=== PATIENT | female | born 1995 | race Caucasian/White ===

== ENCOUNTER 2018-09-28 23:09 | Inpatient (IN) | payer BC ==
[~2018-09-28] VITALS: Ht 160 cm; Wt 89.5 kg
[2018-09-28] MEDS ORDERED: diphenhydrAMINE 25mg capsule PO ONE (23:45)
[2018-09-28 23:57] LABS: BASOPHILS % (AUTO) 0.2 % (0-1); EOSINOPHILS % (AUTO) 0.2 % (0-6); HEMOGLOBIN 12.6 g/dl (12.0-16.0); LYMPHOCYTES # (AUTO) 3.6 X10'3 (1.1-4.8); LYMPHOCYTES % (AUTO) 14.7 % (21-51); MEAN CORPUSCULAR HGB CONC 33.2 g/dL (33.0-36.5); MEAN CORPUSCULAR VOLUME 84.3 FL (78-98); MONOCYTES # (AUTO) 2.4 X10'3 (0-0.9); MONOCYTES % (AUTO) 9.6 % (2-12); NEUTROPHILS # (AUTO) 18.5 X10'3 (1.8-7.7); NEUTROPHILS % (AUTO) 75.3 % (42-75); PLATELET COUNT 277 X10'3 (140-440); RED BLOOD COUNT 4.51 X10'6 (4.20-5.60); RED CELL DISTRIBUTION WIDTH 13.2 % (11.5-14.5); WHITE BLOOD COUNT 24.5 X10'3 (4.5-11.0)
[2018-09-29 00:05] LABS: CLARITY,URINE CLEAR (Clear)
[2018-09-29] MEDS ORDERED: normal saline 1000ML IV soln IV ONE (00:05)
[2018-09-29 00:07] LABS: ALANINE AMINOTRANSFERASE 20 U/L (12-78); ALBUMIN/GLOBULIN RATIO 0.6 (1.1-1.5); ALKALINE PHOSPHATASE 128 IU/L (46-116); ANION GAP 16 (8-16); ASPARTATE AMINO TRANSFERASE 34 U/L (10-37); BILIRUBIN,TOTAL 0.5 MG/DL (0.1-1.0); BLOOD UREA NITROGEN 9 MG/DL (7-18); CALCIUM 9.4 MG/DL (8.5-10.1); CHLORIDE 99 MMOL/L (99-107); GLUCOSE 116 MG/DL (70-104); POTASSIUM 3.4 MMOL/L (3.5-5.1); SODIUM 137 MMOL/L (135-145); TOTAL CARBON DIOXIDE 22.1 MMOL/L (24-32); TOTAL PROTEIN 8.1 G/DL (6.4-8.2); eGFR 78 ML/MIN
[2018-09-29 00:08] LABS: COLOR,URINE ORANGE (Yellow); UA COLLECTION TYPE CLN CATCH MIDSTREAM
[2018-09-29 00:12] LABS: URINE HCG NEGATIVE (NEG)
[2018-09-29 00:14] LABS: PROTHROMBIN TIME 9.7 SECONDS (9.0-12.0); TROPONIN I 7.88 NG/ML (0.0-0.05)
[2018-09-29 00:15] LABS: D-DIMER 1.74 MG/L FEU (0-0.50)
[2018-09-29 00:18] LABS: BACTERIA,URINE FEW /HPF (Neg); RBC,URINE NONE SEEN /HPF (0-2); SQUAMOUS EPITHELIAL CELL,UR FEW /LPF (FEW); WBC,URINE NONE SEEN /HPF (0-4)
[2018-09-29 00:21] LABS: PARTIAL THROMBOPLASTIN TIME 36 SECONDS (22-32)
[2018-09-29] MEDS ORDERED: iohexol 350MG/ML 100ml bottle IV ONE (00:25)
[2018-09-29 00:27] LABS: PLATELET ESTIMATE NORMAL; TOTAL CELLS COUNTED 100
[2018-09-29] MEDS ORDERED: LORazepam 2 mg/ml vial IV ONE (01:55)
[2018-09-29] MEDS ORDERED: morphine 4 MG/ML inj SYRINge IV PRN (02:15)
[2018-09-29] MEDS ORDERED: mag hydrox/Alum hydrox/simeth 30ml oral suspension PO PRN (02:15)
[2018-09-29] MEDS ORDERED: magnesium hydroxide 30ml (MOM) UD suspension PO PRN (02:15)
[2018-09-29] MEDS ORDERED: LEVO88TA39 PO (02:15)
[2018-09-29] MEDS ORDERED: nitroGLYCERIN 0.4mg SUBLingual tab SL PRN (02:15)
[2018-09-29] MEDS ORDERED: ETHI1TAB PO (02:16)
[2018-09-29] MEDS ORDERED: METF500T PO (02:16)
[2018-09-29] MEDS ORDERED: fentaNYL/PF 50MCG/1 ML 2ML syringe IV ONE (02:45)
[2018-09-29 02:50] LABS: HEMOGLOBIN A1C 5.3 % (4.5-6.2)
[2018-09-29] MEDS ORDERED: ondansetron/PF 4mg/2ml inj IV ONE (04:05)
[2018-09-29] MEDS: [UNRECOGNIZED DRUG - OTHER] IV SCH ×2 (04:07→05:24)
[2018-09-29] MEDS: VANCOMYCIN IV SCH ×2 (04:07→05:24)
[2018-09-29] MEDS: SODIUM CHLORIDE IV SCH ×2 (04:07→05:24)
[2018-09-29] MEDS: dextrose 5%-1/2 normal saline 1,000 ML IV SCH ×3 (04:07→21:27)
[2018-09-29 04:15] LABS: URINE AMPHETAMINE SCREEN NEGATIVE (Neg); URINE BARBITUATE SCREEN NEGATIVE (Neg); URINE BENZODIAZEPINES SCREEN NEGATIVE (Neg); URINE CANNABINOID SCREEN NEGATIVE (Neg); URINE COCAINE SCREEN NEGATIVE (Neg); URINE METHADONE SCREEN NEGATIVE (Neg); URINE OPIATE SCREEN NEGATIVE (Neg); URINE PHENCYCLIDINE SCREEN NEGATIVE (Neg)
[2018-09-29] MEDS ORDERED: aspirin 325mg tablet PO ONE (04:55)
[2018-09-29] MEDS: morphine 4 MG/ML inj SYRINge IV PRN (05:23)
[2018-09-29] MEDS: furosemide 20 MG/2 ML vial IV SCH ×3 (05:50→20:39)
--- NOTE | 2018-09-29 06:30 | NUR ---
[facility] admitting hospitalist, Dr. Erazo, regarding lasix order and need for potassium replacement. Patients current blood pressure is 97/55 mmHg will hold lasix until having spoken with .
--- NOTE | 2018-09-29 06:35 | NUR ---
Lasix order not give due to b/p being low. Dr. Erazo paged to discuss the order and possibly placing patient on mag and potassium replacement protocol but no response back. This will be covered in report to PCU nurse.
[2018-09-29 07:18] VITALS: BP 99/47
[2018-09-29] MEDS: metoprolol tartrate 12.5mg (1/2 tablet) PO SCH ×2 (08:00→20:40)
[2018-09-29] MEDS: aspirin 81mg tablet.DR PO SCH (08:59)
[2018-09-29] MEDS: levoTHYROXINE 88mcg tablet PO SCH (09:00)
[2018-09-29] MEDS: enoxaparin 80mg/0.8ml syringe SUBCUT SCH ×2 (09:10→20:41)
[2018-09-29] MEDS: HYDROcodone/acetaminophen 5mg/325mg tablet PO PRN (10:34)
[2018-09-29 11:00] VITALS: BP 97/55
[2018-09-29 15:00] VITALS: BP 100/61
[2018-09-29] MEDS: CefTRIAXone 2gm/D5W 50ml 50 ML IV SCH (15:44)
--- NOTE | 2018-09-29 17:36 | NUR ---
[place] documentation: I have reviewed and agree with all interventions, assessments performed and documented by AMADOU Londono.
--- NOTE | 2018-09-29 17:37 | NUR ---
[place] Medication Administration: For this medication-pass time frame, all medication were reviewed, dispensed, administered and documented per hospital policy by AMADOU Londono.
--- NOTE | 2018-09-29 18:18 | NUR ---
Problems reprioritized. Patient report given, questions answered & plan of care reviewed with Mary TOBAR. Pt is eating dinner and in no acute distress.
[2018-09-29 19:00] VITALS: BP 106/56
[2018-09-29 21:20] LABS: CREATINE KINASE 128 U/L (26-192)
[2018-09-29 21:25] LABS: TROPONIN I 1.98 NG/ML (0.0-0.05)
[2018-09-29 23:00] VITALS: BP 108/60
[2018-09-30] MEDS: ondansetron/PF 4mg/2ml inj IV PRN ×2 (01:56→21:46)
[2018-09-30] MEDS: morphine 4 MG/ML inj SYRINge IV PRN (02:30)
[2018-09-30 03:00] VITALS: BP 105/64
[2018-09-30 06:00] VITALS: BP 101/59
--- NOTE | 2018-09-30 06:02 | NUR ---
Problems reprioritized. Patient report given, questions answered & plan of care reviewed with Rubin TOBAR.
--- NOTE | 2018-09-30 06:10 | NUR ---
Patient in room PCU 3026. I have received report from AMADOU Hernandez and had the opportunity to ask questions and assume patient care.
[2018-09-30] MEDS: levoTHYROXINE 88mcg tablet PO SCH (07:46)
[2018-09-30] MEDS: enoxaparin 80mg/0.8ml syringe SUBCUT SCH ×2 (07:47→20:37)
[2018-09-30] MEDS: aspirin 81mg tablet.DR PO SCH (07:47)
[2018-09-30] MEDS: CefTRIAXone 2gm/D5W 50ml 50 ML IV SCH (07:47)
[2018-09-30] MEDS: furosemide 20 MG/2 ML vial IV SCH ×2 (07:47→20:38)
[2018-09-30] MEDS: metoprolol tartrate 12.5mg (1/2 tablet) PO SCH ×2 (07:51→20:00)
[2018-09-30] MEDS: dextrose 5%-1/2 normal saline 1,000 ML IV SCH ×2 (08:14→14:53)
[2018-09-30 08:35] LABS: BASOPHILS % (AUTO) 0.2 % (0-1); EOSINOPHILS # (AUTO) 0.1 X10'3 (0-0.9); EOSINOPHILS % (AUTO) 0.5 % (0-6); HEMATOCRIT 29.2 % (35.0-45.0); HEMOGLOBIN 9.9 g/dl (12.0-16.0); LYMPHOCYTES # (AUTO) 2.8 X10'3 (1.1-4.8); LYMPHOCYTES % (AUTO) 19.8 % (21-51); MEAN CORPUSCULAR HEMOGLOBIN 28.7 PG (27.0-31.0); MEAN CORPUSCULAR VOLUME 84.3 FL (78-98); MEAN PLATELET VOLUME 7.2 FL (7.4-10.4); MONOCYTES # (AUTO) 1.3 X10'3 (0-0.9); MONOCYTES % (AUTO) 8.9 % (2-12); NEUTROPHILS # (AUTO) 10.1 X10'3 (1.8-7.7); NEUTROPHILS % (AUTO) 70.6 % (42-75); PLATELET COUNT 259 X10'3 (140-440); RED BLOOD COUNT 3.46 X10'6 (4.20-5.60); RED CELL DISTRIBUTION WIDTH 12.2 % (11.5-14.5); WHITE BLOOD COUNT 14.3 X10'3 (4.5-11.0)
[2018-09-30 09:01] LABS: ALBUMIN 2.1 G/DL (3.4-5.0); ANION GAP 10 (8-16); BLOOD UREA NITROGEN 6 MG/DL (7-18); BUN/CREATININE RATIO 11.3 (6.6-38.0); CALCIUM 8.2 MG/DL (8.5-10.1); CHLORIDE 104 MMOL/L (99-107); CHOL/HDL RATIO 6.1 (0.00-4.99); CHOLESTEROL 146 MG/DL (0-200); CREATINE KINASE 56 U/L (26-192); CREATININE 0.53 MG/DL (0.40-0.90); GLUCOSE 113 MG/DL (70-104); HDL CHOLESTEROL 24 MG/DL (35-60); LDL CHOLESTEROL 93 MG/DL (50-100); POTASSIUM 3.4 MMOL/L (3.5-5.1); SODIUM 137 MMOL/L (135-145); TOTAL CARBON DIOXIDE 23.4 MMOL/L (24-32); TRIGLYCERIDES 237 MG/DL (20-135); eGFR > 90 ML/MIN
[2018-09-30 09:03] LABS: TROPONIN I 1.62 NG/ML (0.0-0.05)
--- NOTE | 2018-09-30 09:47 | NUR ---
Student Medication Administration: For this medication-pass time frame, all medication were reviewed, dispensed, administered and documented per hospital policy by SN Lynette.
--- NOTE | 2018-09-30 09:49 | NUR ---
Student documentation: I have reviewed and agree with all interventions, assessments performed and documented by SN Lynette.
[2018-09-30] MEDS ORDERED: potassium Cl 40MEQ/NS 500ml 500 ML IV PRN ×2 (10:10)
[2018-09-30] MEDS ORDERED: potassium Cl 20 mEq SR tablet PO PRN (10:10)
[2018-09-30] MEDS ORDERED: magnesium Cl slow-release 64mg tablet PO PRN (10:10)
[2018-09-30] MEDS ORDERED: magnesium 4gm in 100ml NS 100 ML IV PRN (10:10)
[2018-09-30] MEDS: potassium Cl 20 mEq SR tablet PO PRN ×3 (10:23→20:38)
[2018-09-30 11:56] VITALS: BP 105/68
[2018-09-30] MEDS: HYDROcodone/acetaminophen 5mg/325mg tablet PO PRN ×2 (13:38→18:41)
[2018-09-30 15:00] VITALS: BP 90/64
--- NOTE | 2018-09-30 18:08 | NUR ---
Problems reprioritized. Patient report given, questions answered & plan of care reviewed with AMADOU Hernandez.
[2018-09-30 18:30] VITALS: BP 109/70
[2018-09-30 22:10] VITALS: BP 89/48
[2018-10-01 02:10] VITALS: BP 124/68
[2018-10-01] MEDS: dextrose 5%-1/2 normal saline 1,000 ML IV SCH ×2 (02:35→12:26)
[2018-10-01] MEDS: acetaminophen 325mg tablet PO PRN ×2 (02:45→12:25)
--- NOTE | 2018-10-01 05:16 | NUR ---
Student Medication Administration: For this medication-pass time frame, all medication were reviewed, dispensed, administered and documented per hospital policy by Jimena VASQUEZ. Student documentation: I have reviewed and agree with all interventions, assessments performed and documented by Jimena VASQUEZ.
[2018-10-01 06:00] VITALS: BP 100/60
--- NOTE | 2018-10-01 06:00 | NUR ---
Problems reprioritized. Patient report given, questions answered & plan of care reviewed with Rubin TOBAR.
--- NOTE | 2018-10-01 06:13 | NUR ---
Patient in room PCU 3022. I have received report from AMADOU Hernandez and had the opportunity to ask questions and assume patient care.
[2018-10-01 06:21] LABS: BASOPHILS % (AUTO) 0.3 % (0-1); EOSINOPHILS # (AUTO) 0.2 X10'3 (0-0.9); EOSINOPHILS % (AUTO) 1.2 % (0-6); HEMATOCRIT 28.5 % (35.0-45.0); HEMOGLOBIN 9.6 g/dl (12.0-16.0); LYMPHOCYTES # (AUTO) 3.7 X10'3 (1.1-4.8); LYMPHOCYTES % (AUTO) 29.3 % (21-51); MEAN CORPUSCULAR HEMOGLOBIN 28.5 PG (27.0-31.0); MEAN CORPUSCULAR HGB CONC 33.8 g/dL (33.0-36.5); MEAN CORPUSCULAR VOLUME 84.1 FL (78-98); MEAN PLATELET VOLUME 7.3 FL (7.4-10.4); MONOCYTES # (AUTO) 1.3 X10'3 (0-0.9); MONOCYTES % (AUTO) 9.9 % (2-12); NEUTROPHILS # (AUTO) 7.5 X10'3 (1.8-7.7); NEUTROPHILS % (AUTO) 59.3 % (42-75); PLATELET COUNT 238 X10'3 (140-440); RED BLOOD COUNT 3.39 X10'6 (4.20-5.60); WHITE BLOOD COUNT 12.7 X10'3 (4.5-11.0)
[2018-10-01 06:36] LABS: ANION GAP 11 (8-16); BLOOD UREA NITROGEN 7 MG/DL (7-18); BUN/CREATININE RATIO 11.5 (6.6-38.0); CALCIUM 8.3 MG/DL (8.5-10.1); CHLORIDE 104 MMOL/L (99-107); CREATININE 0.61 MG/DL (0.40-0.90); GLUCOSE 94 MG/DL (70-104); POTASSIUM 3.6 MMOL/L (3.5-5.1); SODIUM 139 MMOL/L (135-145); TOTAL CARBON DIOXIDE 24.4 MMOL/L (24-32); eGFR > 90 ML/MIN
[2018-10-01] MEDS: aspirin 81mg tablet.DR PO SCH (07:51)
[2018-10-01] MEDS: lactobacillus rhamnosus 10,000 MMU CELLS/CAPSULE PO SCH ×2 (07:51→19:42)
[2018-10-01] MEDS: metoprolol tartrate 12.5mg (1/2 tablet) PO SCH ×2 (07:51→19:56)
[2018-10-01] MEDS: furosemide 20 MG/2 ML vial IV SCH ×2 (07:52→19:42)
[2018-10-01] MEDS: levoTHYROXINE 88mcg tablet PO SCH (07:52)
[2018-10-01] MEDS: CefTRIAXone 2gm/D5W 50ml 50 ML IV SCH (07:52)
[2018-10-01] MEDS: enoxaparin 80mg/0.8ml syringe SUBCUT SCH ×2 (08:00→19:41)
[2018-10-01] MEDS: metFORMIN 500mg tablet PO SCH ×3 (08:05→20:00)
[2018-10-01 15:00] VITALS: BP 119/68
[2018-10-01] MEDS ORDERED: regadenoson 0.4mg/5ml syringe IV ONE (15:20)
[2018-10-01] MEDS ORDERED: metoprolol tartrate 1mg/ml inj IV PRN (15:20)
[2018-10-01] MEDS ORDERED: nitroGLYCERIN 0.4mg SUBLingual tab SL PRN (15:20)
[2018-10-01] MEDS ORDERED: aminophylline 250mg/10ml inj. IV PRN (15:20)
--- NOTE | 2018-10-01 18:09 | NUR ---
Problems reprioritized. Patient report given, questions answered & plan of care reviewed with AMADOU Hernandez.
[2018-10-01 18:30] VITALS: BP 126/63
[2018-10-01 22:46] VITALS: BP 94/49
[2018-10-02] VITALS (13 sets, daily range): BP systolic 90–130; BP diastolic 43–77
[2018-10-02] MEDS: dextrose 5%-1/2 normal saline 1,000 ML IV SCH (00:14)
--- NOTE | 2018-10-02 06:19 | NUR ---
Problems reprioritized. Patient report given, questions answered & plan of care reviewed with Violeta TOBAR & Isabella RN.
--- NOTE | 2018-10-02 06:51 | NUR ---
Patient in room PCU 3022. I have received report from Mary TOBAR and had the opportunity to ask questions and assume patient care. Pt is resting comfortably on room air in no apparent distress. Pt is alert and oriented X 4, will continue to monitor.
[2018-10-02 07:07] LABS: BASOPHILS % (AUTO) 0.3 % (0-1); EOSINOPHILS # (AUTO) 0.2 X10'3 (0-0.9); EOSINOPHILS % (AUTO) 1.5 % (0-6); HEMATOCRIT 30.4 % (35.0-45.0); HEMOGLOBIN 10.2 g/dl (12.0-16.0); LYMPHOCYTES # (AUTO) 3.8 X10'3 (1.1-4.8); MEAN CORPUSCULAR HEMOGLOBIN 28.2 PG (27.0-31.0); MEAN CORPUSCULAR HGB CONC 33.6 g/dL (33.0-36.5); MEAN CORPUSCULAR VOLUME 84.1 FL (78-98); MEAN PLATELET VOLUME 7.3 FL (7.4-10.4); MONOCYTES # (AUTO) 1.4 X10'3 (0-0.9); MONOCYTES % (AUTO) 11.1 % (2-12); NEUTROPHILS # (AUTO) 7.2 X10'3 (1.8-7.7); NEUTROPHILS % (AUTO) 57.1 % (42-75); PLATELET COUNT 260 X10'3 (140-440); RED BLOOD COUNT 3.61 X10'6 (4.20-5.60); RED CELL DISTRIBUTION WIDTH 12.9 % (11.5-14.5); WHITE BLOOD COUNT 12.6 X10'3 (4.5-11.0)
[2018-10-02 07:09] LABS: HIV ANTIBODY 1&2 RAPID NON-REACTIVE (Neg)
[2018-10-02 07:12] LABS: ALBUMIN 2.2 G/DL (3.4-5.0); ANION GAP 10 (8-16); BLOOD UREA NITROGEN 10 MG/DL (7-18); BUN/CREATININE RATIO 15.4 (6.6-38.0); CALCIUM 8.7 MG/DL (8.5-10.1); CHLORIDE 102 MMOL/L (99-107); CREATININE 0.65 MG/DL (0.40-0.90); GLUCOSE 87 MG/DL (70-104); POTASSIUM 3.7 MMOL/L (3.5-5.1); SODIUM 139 MMOL/L (135-145); TOTAL CARBON DIOXIDE 26.8 MMOL/L (24-32); eGFR > 90 ML/MIN
[2018-10-02] MEDS: enoxaparin 80mg/0.8ml syringe SUBCUT SCH ×2 (08:00→21:02)
[2018-10-02] MEDS: furosemide 20 MG/2 ML vial IV SCH ×2 (08:00→20:58)
[2018-10-02] MEDS: metFORMIN 500mg tablet PO SCH ×2 (08:00→08:46)
[2018-10-02] MEDS: metoprolol tartrate 12.5mg (1/2 tablet) PO SCH ×2 (08:00→20:57)
[2018-10-02] MEDS: aspirin 81mg tablet.DR PO SCH (08:46)
[2018-10-02] MEDS: levoTHYROXINE 88mcg tablet PO SCH (08:46)
[2018-10-02] MEDS: lactobacillus rhamnosus 10,000 MMU CELLS/CAPSULE PO SCH ×2 (08:55→20:57)
[2018-10-02] MEDS ORDERED: regadenoson 0.4mg/5ml syringe IV ONE (09:57)
[2018-10-02] MEDS ORDERED: aminophylline inj. 10 ML IV ONE (09:57)
--- NOTE | 2018-10-02 13:04 | NUR ---
PAGER ID: [phone] MESSAGE: [id number] Deysi Calderon Stress test resulted, pt is wanting to eat, but is still NPO. Please review and call me to let me know, thank you, Violeta#[phone]
--- NOTE | 2018-10-02 18:40 | NUR ---
Problems reprioritized. Patient report given, questions answered & plan of care reviewed with Mary TOBAR.
[2018-10-02] MEDS: HYDROcodone/acetaminophen 5mg/325mg tablet PO PRN (20:59)
[2018-10-02] MEDS: temazepam 15mg capsule PO PRN (20:59)
[2018-10-03] VITALS (11 sets, daily range): BP systolic 93–121; BP diastolic 54–70
--- NOTE | 2018-10-03 06:49 | NUR ---
Problems reprioritized. Patient report given, questions answered & plan of care reviewed with Nathan RN.
--- NOTE | 2018-10-03 07:08 | NUR ---
Patient in room PCU 3022. I have received report from AMADOU CATES and had the opportunity to ask questions and assume patient care.
[2018-10-03] MEDS ORDERED: LIDOcaine/PRILOcaine 5gm cream TP ONE ×2 (07:30→08:30)
[2018-10-03] MEDS: lactobacillus rhamnosus 10,000 MMU CELLS/CAPSULE PO SCH ×2 (07:49→19:33)
[2018-10-03] MEDS: furosemide 20 MG/2 ML vial IV SCH (07:49)
[2018-10-03] MEDS: aspirin 81mg tablet.DR PO SCH (07:50)
[2018-10-03] MEDS: metFORMIN 500mg tablet PO SCH (07:52)
[2018-10-03] MEDS: metoprolol tartrate 12.5mg (1/2 tablet) PO SCH (07:54)
[2018-10-03] MEDS: levoTHYROXINE 88mcg tablet PO SCH (07:55)
[2018-10-03] MEDS: enoxaparin 80mg/0.8ml syringe SUBCUT SCH (08:00)
[2018-10-03] MEDS ORDERED: LIDOcaine 1% (10mg/ml)w/preservative injection 20ml MDV ONE (08:57)
[2018-10-03] MEDS ORDERED: midazolam 2 mg/2 ml injection ONE ×2 (08:57→10:19)
[2018-10-03] MEDS ORDERED: fentaNYL/PF 50MCG/1 ML 2ML syringe ONE (08:57)
[2018-10-03] MEDS ORDERED: verapamil 2.5 mg/ml inj IV ONE (08:57)
[2018-10-03] MEDS ORDERED: nitroGLYCERIN-Tridil 50MG/D5W 250 ML IV ONE (08:57)
[2018-10-03] MEDS ORDERED: iohexol 350 MG/ML 50ML vial IV ONE (08:58)
[2018-10-03] MEDS ORDERED: iohexol 350MG/ML 100ml bottle IV ONE (08:58)
[2018-10-03] MEDS ORDERED: heparin 1,000unit/ml 10ml vial 10 ML ONE (08:58)
--- NOTE | 2018-10-03 11:00 | NUR ---
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 VASC BAND INTACT RIGHT WRIST, NO SX OF HEMATOMA OR HEMORRHAGE, GOOD CSM NOTED. VS STABLE/
--- NOTE | 2018-10-03 12:00 | NUR ---
HAS BEEN CHECKED EVERY 15 MINUTES, ASSESSMENT UNCHANGED. C/O "RIGHT THUMB FEELING NUMB". RELEASED 3CC AIR FROM VASC BAND WITH RELIEF OF TINGLING.SITE CDI WITHOUT SX OF HEMATOMA OR HEMORAGGE.VS REMAIN STABLE.
[2018-10-03 12:12] LABS: BASOPHILS # (AUTO) 0.1 X10'3 (0-0.2); BASOPHILS % (AUTO) 0.4 % (0-1); EOSINOPHILS # (AUTO) 0.2 X10'3 (0-0.9); EOSINOPHILS % (AUTO) 1.8 % (0-6); HEMATOCRIT 34.1 % (35.0-45.0); HEMOGLOBIN 11.4 g/dl (12.0-16.0); LYMPHOCYTES # (AUTO) 4.3 X10'3 (1.1-4.8); LYMPHOCYTES % (AUTO) 33.8 % (21-51); MEAN CORPUSCULAR HEMOGLOBIN 27.9 PG (27.0-31.0); MEAN CORPUSCULAR HGB CONC 33.5 g/dL (33.0-36.5); MEAN CORPUSCULAR VOLUME 83.5 FL (78-98); MEAN PLATELET VOLUME 6.6 FL (7.4-10.4); MONOCYTES # (AUTO) 0.8 X10'3 (0-0.9); NEUTROPHILS # (AUTO) 7.4 X10'3 (1.8-7.7); PLATELET COUNT 378 X10'3 (140-440); RED BLOOD COUNT 4.09 X10'6 (4.20-5.60); RED CELL DISTRIBUTION WIDTH 12.8 % (11.5-14.5); WHITE BLOOD COUNT 12.8 X10'3 (4.5-11.0)
[2018-10-03 12:30] LABS: ALBUMIN 2.7 G/DL (3.4-5.0); ANION GAP 10 (8-16); BLOOD UREA NITROGEN 11 MG/DL (7-18); BUN/CREATININE RATIO 16.7 (6.6-38.0); CALCIUM 9.3 MG/DL (8.5-10.1); CHLORIDE 101 MMOL/L (99-107); CREATININE 0.66 MG/DL (0.40-0.90); GLUCOSE 93 MG/DL (70-104); POTASSIUM 3.9 MMOL/L (3.5-5.1); SODIUM 136 MMOL/L (135-145); TOTAL CARBON DIOXIDE 25.5 MMOL/L (24-32); eGFR > 90 ML/MIN
[2018-10-03] MEDS: HYDROcodone/acetaminophen 5mg/325mg tablet PO PRN ×2 (13:16→19:37)
--- NOTE | 2018-10-03 13:59 | NUR ---
PRESSURE HAS BEEN RELEASED FROM VASC BAND. WELL MATT. NO SX OF HEMATOMA OR HEMORRHAGE.VS REMAIN STABLE.
--- NOTE | 2018-10-03 15:39 | NUR ---
REMOVED VASC BAND FROM RIGHT WRIST, GENTLY CLEANED SITE, BANDAID APPLIED. WELL MATT. SITE WIHOU REDNESS, SWELLING, OR DRAINAGE.
[2018-10-03] MEDS ORDERED: OXAZEpam 15mg capsule PO PRN (15:55)
[2018-10-03] MEDS ORDERED: potassium Cl 40MEQ/NS 500ml 500 ML IV PRN ×2 (16:00)
[2018-10-03] MEDS ORDERED: normal saline 1000ml 1,000 ML IV SCH (16:00)
[2018-10-03] MEDS ORDERED: potassium Cl 20 mEq SR tablet PO PRN ×2 (16:00)
--- NOTE | 2018-10-03 16:15 | NUR ---
PAGER ID: [phone] MESSAGE: DR. MARTINEZ, [id number]/JENA, CAN WE DC THE METFORMIN? RE: HEART CATH DONE TODAY. [facility] [id number]. TY.
--- NOTE | 2018-10-03 18:18 | NUR ---
Problems reprioritized. Patient report given, questions answered & plan of care reviewed with marissa kingsley.
[2018-10-03] MEDS: carVEDilol 3.125mg tablet PO SCH (19:33)
[2018-10-03] MEDS: temazepam 15mg capsule PO PRN (22:27)
[2018-10-04 02:00] VITALS: BP 105/59
[2018-10-04 04:13] LABS: BASOPHILS # (AUTO) 0.1 X10'3 (0-0.2); BASOPHILS % (AUTO) 0.7 % (0-1); EOSINOPHILS # (AUTO) 0.3 X10'3 (0-0.9); EOSINOPHILS % (AUTO) 2.6 % (0-6); HEMATOCRIT 31.8 % (35.0-45.0); HEMOGLOBIN 10.8 g/dl (12.0-16.0); LYMPHOCYTES # (AUTO) 3.6 X10'3 (1.1-4.8); LYMPHOCYTES % (AUTO) 35.9 % (21-51); MEAN CORPUSCULAR HEMOGLOBIN 28.6 PG (27.0-31.0); MEAN CORPUSCULAR HGB CONC 34.1 g/dL (33.0-36.5); MEAN CORPUSCULAR VOLUME 83.8 FL (78-98); MEAN PLATELET VOLUME 6.8 FL (7.4-10.4); MONOCYTES # (AUTO) 0.8 X10'3 (0-0.9); MONOCYTES % (AUTO) 8.5 % (2-12); NEUTROPHILS # (AUTO) 5.2 X10'3 (1.8-7.7); NEUTROPHILS % (AUTO) 52.3 % (42-75); PLATELET COUNT 251 X10'3 (140-440); RED BLOOD COUNT 3.79 X10'6 (4.20-5.60); RED CELL DISTRIBUTION WIDTH 12.7 % (11.5-14.5); WHITE BLOOD COUNT 9.9 X10'3 (4.5-11.0)
[2018-10-04 04:21] LABS: ALBUMIN 2.5 G/DL (3.4-5.0); ANION GAP 10 (8-16); BLOOD UREA NITROGEN 10 MG/DL (7-18); BUN/CREATININE RATIO 18.5 (6.6-38.0); CALCIUM 9.1 MG/DL (8.5-10.1); CHLORIDE 104 MMOL/L (99-107); CHOL/HDL RATIO 6.6 (0.00-4.99); CHOLESTEROL 172 MG/DL (0-200); CREATININE 0.54 MG/DL (0.40-0.90); GLUCOSE 78 MG/DL (70-104); HDL CHOLESTEROL 26 MG/DL (35-60); LDL CHOLESTEROL 102 MG/DL (50-100); POTASSIUM 4.1 MMOL/L (3.5-5.1); SODIUM 140 MMOL/L (135-145); TOTAL CARBON DIOXIDE 26.2 MMOL/L (24-32); TRIGLYCERIDES 323 MG/DL (20-135); eGFR > 90 ML/MIN
[2018-10-04 06:00] VITALS: BP 108/73
--- NOTE | 2018-10-04 06:29 | NUR ---
Patient in room PCU 3022. I have received report from marissa kingsley and had the opportunity to ask questions and assume patient care.
[2018-10-04] MEDS: carVEDilol 3.125mg tablet PO SCH (07:29)
[2018-10-04] MEDS: aspirin 81mg tablet.DR PO SCH (07:30)
[2018-10-04] MEDS: lactobacillus rhamnosus 10,000 MMU CELLS/CAPSULE PO SCH (07:30)
[2018-10-04] MEDS: levoTHYROXINE 88mcg tablet PO SCH (07:32)
[2018-10-04] MEDS ORDERED: ASPI-1071 PO (09:12)
[2018-10-04] MEDS ORDERED: ATOR10TA PO (09:12)
[2018-10-04] MEDS ORDERED: COR3.125T PO (09:12)
--- NOTE | 2018-10-04 10:31 | NUR ---
PAGER ID: [phone] MESSAGE: DR. MARTINEZ, [id number]/[id number], PLEASE CALL [facility] [phone] R/T DISCHARGE ORDERS. TY
[2018-10-04 11:00] VITALS: BP 114/59
--- NOTE | 2018-10-04 11:15 | NUR ---
PAGED SS:[id number], PLEASE CALL [facility] RAM, DISCHARGE IS PENDING. TY [facility]SH [phone].
--- NOTE | 2018-10-04 12:10 | NUR ---
TERRY MONDRAGON IN TO ASSIST WITH DISABILITY PAPERWORK. GAMING WORKER TO CONS FOR HH DIET.
--- NOTE | 2018-10-04 12:36 | NUR ---
cardiac diet ed consult: Pt s/p cardiac cath admit w/ Cholesterol 102 and TG [address] visit prior to d/c. Pt/mother seen by RD for written/verbal heart healthy diet ed. RD contact information provided. Encouraged pt and mother to contact RD in case of further questions. Addendum: 10/04/18 at [address] Amended: Links added.
[2018-10-04] MEDS ORDERED: atorvastatin 10mg tablet PO SCH (21:00)
[2018-10-05 19:11] LABS: ANTI-DSDNA ANTIBODIES <1 IU/mL (0-9); ANTINUCLEAR ANTIBODIES Negative (Negative)
== END 2018-10-04 12:40 | disposition home or self-care (01) | DRG 280 ==
LOC: ER 23:09 → ED HOLD 09-29 02:14 → PCU 3S 09-29 06:41
PROVIDERS: ADMIT Internal Medicine; ATTEND Family Medicine
PROC: 02HV33Z Insertion of Infusion Device into Superior Vena Cava, Percutaneous Approach (ICD-10-PCS; 2018-09-28)
PROC: B32T1ZZ Computerized Tomography (CT Scan) of Left Pulmonary Artery using Low Osmolar Contrast (ICD-10-PCS; 2018-09-29)
PROC: B3201ZZ Computerized Tomography (CT Scan) of Thoracic Aorta using Low Osmolar Contrast (ICD-10-PCS; 2018-09-29)
PROC: B32S1ZZ Computerized Tomography (CT Scan) of Right Pulmonary Artery using Low Osmolar Contrast (ICD-10-PCS; 2018-09-29)
PROC: 4A02XM4 Measurement of Cardiac Total Activity, External Approach (ICD-10-PCS; 2018-10-02)
PROC: 3E033HZ Introduction of Radioactive Substance into Peripheral Vein, Percutaneous Approach (ICD-10-PCS; 2018-10-02)
PROC: 4A023N7 Measurement of Cardiac Sampling and Pressure, Left Heart, Percutaneous Approach (ICD-10-PCS; principal; 2018-10-03)
PROC: B2111ZZ Fluoroscopy of Multiple Coronary Arteries using Low Osmolar Contrast (ICD-10-PCS; 2018-10-03)
PROC: B2151ZZ Fluoroscopy of Left Heart using Low Osmolar Contrast (ICD-10-PCS; 2018-10-03)
DX: I21.A1 Myocardial infarction type 2 (principal); I40.0 Infective myocarditis; D72.820 Lymphocytosis (symptomatic); E03.9 Hypothyroidism, unspecified; E11.9 Type 2 diabetes mellitus without complications; E28.2 Polycystic ovarian syndrome; I25.10 Atherosclerotic heart disease of native coronary artery without angina pectoris; E87.6 Hypokalemia; E66.9 Obesity, unspecified; R70.0 Elevated erythrocyte sedimentation rate; E78.5 Hyperlipidemia, unspecified; Z79.84 Long term (current) use of oral hypoglycemic drugs; Z87.440 Personal history of urinary (tract) infections; Z68.35 Body mass index [BMI] 35.0-35.9, adult; Z79.899 Other long term (current) drug therapy; Z79.82 Long term (current) use of aspirin
CPT/HCPCS: 36415; 36556; 71045; 71275; 78452; 80048; 80053; 80061; 80305; 81001; 81003; 81025; 82550; 82948; 83036; 83605; 83880; 84145; 84443; 84484; 85025; 85379; 85610; 85651; 85730; 86038; 86603; 86658; 86703; 87040; 87070; 93005; 93017; 93306; 93458; 96361; 96374; 99152; 99153; 99285; A4620; A9500; C1769; G0378; J0280; J0696; J1644; J1650; J1940; J2001; J2060; J2250; J2270; J2405; J3010; J3370; J3490; Q0163; Q9967

== ENCOUNTER 2019-09-27 16:27 | Emergency (ER) | payer BC ==
[~2019-09-27] VITALS: Ht 160 cm; Wt 73.0 kg
[~2019-09-27 16:27] MED LIST: ASPI-1071 PO; ATOR10TA PO; COR3.125T PO; ETHI1TAB PO; LEVO88TA39 PO; METF500T PO
[2019-09-27 17:10] LABS: BASOPHILS % (AUTO) 0.4 % (0-1); EOSINOPHILS # (AUTO) 0.1 X10'3 (0-0.9); EOSINOPHILS % (AUTO) 0.8 % (0-6); HEMATOCRIT 41.3 % (35.0-45.0); HEMOGLOBIN 14.2 g/dl (12.0-16.0); LYMPHOCYTES # (AUTO) 3.9 X10'3 (1.1-4.8); MEAN CORPUSCULAR HEMOGLOBIN 29.9 PG (27.0-31.0); MEAN CORPUSCULAR HGB CONC 34.4 g/dL (33.0-36.5); MEAN PLATELET VOLUME 7.4 FL (7.4-10.4); MONOCYTES # (AUTO) 0.5 X10'3 (0-0.9); MONOCYTES % (AUTO) 5.4 % (2-12); NEUTROPHILS # (AUTO) 4.6 X10'3 (1.8-7.7); NEUTROPHILS % (AUTO) 50.4 % (42-75); PLATELET COUNT 294 X10'3 (140-440); RED BLOOD COUNT 4.75 X10'6 (4.20-5.60); RED CELL DISTRIBUTION WIDTH 13.3 % (11.5-14.5); WHITE BLOOD COUNT 9.1 X10'3 (4.5-11.0)
[2019-09-27 17:23] LABS: D-DIMER 0.22 MG/L FEU (0-0.50)
[2019-09-27 17:32] LABS: ALANINE AMINOTRANSFERASE 18 U/L (12-78); ALBUMIN 3.6 G/DL (3.4-5.0); ALKALINE PHOSPHATASE 67 IU/L (46-116); ANION GAP 9 (8-16); ASPARTATE AMINO TRANSFERASE 15 U/L (10-37); BILIRUBIN,TOTAL 0.2 MG/DL (0.1-1.0); BLOOD UREA NITROGEN 10 MG/DL (7-18); BUN/CREATININE RATIO 9.9 (6.6-38.0); CALCIUM 9.3 MG/DL (8.5-10.1); CHLORIDE 104 MMOL/L (99-107); CREATININE 1.01 MG/DL (0.40-0.90); GLUCOSE 85 MG/DL (70-104); SODIUM 141 MMOL/L (135-145); TOTAL CARBON DIOXIDE 27.8 MMOL/L (24-32); TOTAL PROTEIN 7.2 G/DL (6.4-8.2); eGFR 68 ML/MIN
[2019-09-27 17:41] LABS: MAGNESIUM 1.9 MG/DL (1.5-2.4)
[2019-09-27 18:06] VITALS: BP 115/68
== END 2019-09-27 18:12 | disposition home or self-care (01) ==
LOC: ER 16:28
DX: R07.81 Pleurodynia (principal); R11.10 Vomiting, unspecified; E05.90 Thyrotoxicosis, unspecified without thyrotoxic crisis or storm; Z79.82 Long term (current) use of aspirin; Z79.899 Other long term (current) drug therapy; Z79.84 Long term (current) use of oral hypoglycemic drugs
CPT/HCPCS: 36415; 71045; 80053; 83735; 83880; 84484; 85025; 85379; 93005; 99285

== ENCOUNTER 2019-10-04 15:43 | Outpatient (CLI) | payer BC | END 2019-10-04 23:59 | disposition home or self-care (01) | LOC: CARD DIAG 15:43 | PROVIDERS: ATTEND Internal Medicine Cardiovascular Disease | DX: R07.9 Chest pain, unspecified (principal) | CPT/HCPCS: 93306 ==